=== PATIENT | female | born 2000 | race Caucasian/White ===

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

== ENCOUNTER 2020-12-07 07:38 | Day surgery (SDC) | payer BC, SELFPAY ==
[2020-10-14 15:46] VITALS: BMI 22.8
--- NOTE | 2020-12-06 23:45 | HP.PCM_ITS ---
History and Physical Date of Admission: 12/07/20 HISTORY OF PRESENT ILLNESS 20 year old woman presents with a crushing injury to her right ring finger tip back in January,. She was working as a main line assembler. She got her right ring finger crushed between two packages of frozen chicken. She developed an erythematous mass on the ulnar aspect of her right ring finger tip is friable. She sustained some bleeding later on that required going to the ED for hemostasis. She has some discomfort when her right ring finger tip is bumped. She states when she went to the ED, no x-ray was taken. She denies fever. She is back to work and has no difficulty with activities of daily living. She is right hand dominant. She presents at this time for further evaluation and treatment. 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 Pyogenic granuloma of skin UTI (urinary tract infection) PAST SURGICAL HISTORY None ALLERGIES No Known Allergies MEDICATIONS gabapentin 100 mg capsule 100 mg PO DAILY 10/14/20 [History Confirmed 10/14/20] zulema root 325 mg-pyridoxine HCl (vitamin B6) 25 mg capsule 1 cap PO DAILY cap 10/14/20 [History Confirmed 10/14/20] pediatric gkmiztqx-legt-imi 2 tab PO DAILY tab 10/14/20 [History Confirmed 10/14/20] FAMILY HISTORY Mother - Anemia, History of blood clots Grandmother - Anesthesia complication, History of blood clots, Hypertension Grandfather - Depression, Diabetes, Hypertension, CVA (cerebral vascular accident), Skin cancer Aunt - Anesthesia complication SOCIAL HISTORY Smoking Status: Never smoker alcohol intake: never substance use type: does not use REVIEW OF SYSTEMS General - Denies fever, fatigue, and weight loss. Eyes - Denies cataracts and glaucoma. ENT - Denies nasal congestion and sore throat. Endocrine - Denies excessive thirst and urination. Skin - Denies skin cancer. Has pyogenic granuloma ulnar aspect right ring finger tip. Musculoskeletal - Denies joint pain, joint stiffness, weakness of muscles and joints, back pain, and arthritis. Neuro - Denies headaches. Cardiovascular - Denies chest pain, fatigue, and shortness of breath with exertion. Psych - Denies anxiety and depression. Respiratory - Denies chronic cough and shortness of breath. Gastrointestinal - Denies nausea, vomiting, diarrhea, and constipation. Hematologic - Denies abnormal bruising and bleeding. Genitourinary - Denies hematuria and urinary frequency. PHYSICAL EXAMINATION General - Alert and Oriented. HEENT - PERRL. EOMI. Throat is clear. Neck - Supple and nontender. No cervical adenopathy. Lungs - Clear to auscultation. Heart - Regular rate and rhythm. Abdomen - Soft and nondistended. Extremities - FROM. No axillary adenopathy. Radial pulses are palpable. On the ulnar aspect right ring finger tip is a erythematous mass consistent with a pyogenic granuloma. Measures 3 mm. Raised in configuration. No sensory deficits. Tip is soft. No evidence of infection. Patient is right hand dominant. Neuro - CN II-XII grossly intact. Psych - Normal mood and affect. ASSESSMENT 1. 3 mm pyogenic granuloma ulnar aspect right ring finger tip. 2. Late effect crush injury right ring finger tip. 3. 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 PLAN Patient has a pyogenic granuloma that she sustained at work as a main line assembler. It was a crushing injury. The treatment for a pyogenic granuloma is excision. Generally I leave the wound open and proceed with postoperative wound care with Silver dressing changes. Sometimes the pyogenic granuloma tracks down to the bone. A bone biopsy would be done at that time. If bone is exposed than wound reconstruction would be with an advancement skin flap. Tissue that is removed would be sent to Pathology for analysis to rule out carcinoma and to Microbiology for culture. A positive culture would necessitate antibiotic therapy. Surgery can be done on an outpatient basis under local anesthesia as a digital metacarpal and IV sedation. Prior to surgery an x-ray of the right ring finger will need to be done to look for any bony abnormalities. Patient was informed of the risks and complications of the procedure including alternatives to surgery. These were discussed with the patient personally. P atient voices understanding and wishes to proceed. Some of the risks and complications were included in a form from the [place] [employer]. Some of the risks and complications that were discussed included but were not inclusive of failure to diagnose including symptom relief, pain, infection, numbness, stiffness, loss of digit, RSD (CRPS), need for further surgery, contracture, and wound healing problems. We discussed the current risks associated with COVID-19. While it is understood that there is a community spread of COVID-19, the risk of haresh COVID-[address] [facility] ([facility]) is very low; however, the risk cannot be completely mitigated because of the community spread of the disease. We discussed in detail the risk of exposure to and/or potential harm posed by the COVID-19 virus with having a surgery/procedure at this time versus the risk of delaying the surgery/procedure. It is not possible to know either the risk of delaying the surgery or procedure or chance of getting an infection with perfect accuracy, but a joint decision was made to proceed at this time with the scheduled surgery/procedure as indicated on the consent form. Patient was notified that we will need to comply with any screening or testing [facility] wishes to perform or that surgery may be delayed for any positive results. Discussed with the patient that I was tested for COVID-19 on 12/12/19 which was negative and on 12/26/19 which was negative and on 01/09/20 which was negative and on 01/23/20 which was negative and on 02/06/20 which was negative and on 02/27/20 which was negative and on 03/19/20 which was negative and on 04/23/20 which was negative and on 05/14/20 which was negative and on 06/02/20 which was negative. I received the COVID-19 vaccine (Moderna) on 06/10/20 and the second vaccine dose was received on 07/08/20. When I was hospitalized on 08/10/20 I was tested for COVID-19 which was negative. I was also tested for COVID-19 on 08/25/20 which was negative and on 09/21/20 which was negative.
--- NOTE | 2020-12-06 23:46 | PCM.HP.BLA ---
History and Physical THIS DOCUMENT WAS ENTERED IN ERROR.
[2020-12-07] VITALS (7 sets, daily range): BP systolic 101–134; BP diastolic 60–88; PULSE 91–106; RESP 16–18; TEMP 19.9–36.3; O2SAT 96–100; BMI 22.1
--- NOTE | 2020-12-07 | GRA_PTH ---
PATIENT: RANI CASTILLO LOC: [facility] [place] U#:[id number] AGE/SX: 20/F ROOM: RE12/07/[address]: Dr. Seven Hogue MD : [id number] BED: DIS: 12/07/2020 SPEC #: [id number] RECD: 12/07/20 11:33 STATUS: JASWINDER RERomain #: [id number] PERCY: 12/07/20 00:[address]: Seven Hogue DEPT: SURGICAL PATHOLOGY RECD BY: Lewis Crain ENTERED: 12/07/20 11:33 SP TYPE: ALDAIR VARELA DR: Dr. Leroy Medina MD Tissues: Finger, NOS Procedures: Surgery Specimen Level IV HEADER OPERATION: Excision pyogenic granuloma, ring finger PRE-OP DIAGNOSIS: 3 mm pyogenic granuloma ulnar aspect right ring fingertip TISSUE SUBMITTED: Pyogenic granuloma right ring finger MICROSCOPIC DIAGNOSIS Skin and soft tissue of right ring finger, biopsy: Hyperkeratosis, fibrosis and mature granulation. No evidence of malignancy. AM:larry 12/08/2020 MICROSCOPIC DESCRIPTION Slides are reviewed. GROSS DESCRIPTION Received in fixative is one container labeled with the patient's name and designated pyogenic granuloma right ring finger. The specimen consists of a piece of fernandez-white skin measuring 0.3 x 0.3 x 0.2 cm. The specimen is totally submitted in one cassette. / MIYA:larry 12/07/20 TC:5 CPT: 86878
[2020-12-07 08:06] LABS: Internal QC Validated? YES +Cl - CLEAR BKGD; Pregnancy, Urine Negative Negative
[2020-12-07] MEDS: Lactated Ringers 1,000 ML 100 ML IV (08:17)
[2020-12-07] MEDS: Cefazolin 2 GM in 0.9% Normal Saline 100 ML IV (08:58)
[2020-12-07] MEDS: Lidocaine 1% /Epi 1:100 (20ml) 20 ML Vial (09:15)
--- NOTE | 2020-12-07 09:46 | PCM.OPRPT ---
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 3 mm pyogenic granuloma ulnar aspect right ring finger tip. 2. Late effect crush injury right ring finger tip. 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 Post-Operative Diagnosis: 1. 3 mm pyogenic granuloma ulnar aspect right ring finger tip. 2. Late effect crush injury right ring finger tip. 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 4. Open wound ulnar aspect right ring finger tip. Surgery/Procedure Performed:: Surgical preparation ulnar aspect right ring finger tip with excision pyogenic granuloma (0.2 cm2). Description of Surgical Findings:: 20 year old woman presents with a crushing injury to her right ring finger tip back in January,. She was working as a repair supervisor. She got her right ring finger crushed between two packages of frozen chicken. She developed an erythematous mass on the ulnar aspect of her right ring finger tip is friable. She sustained some bleeding later on that required going to the ED for hemostasis. She has some discomfort when her right ring finger tip is bumped. She denies fever. She is back to work and has no difficulty with activities of daily living. She is right hand dominant. Patient was informed of the risks and complications of the procedure including alternatives to surgery. These were discussed with the patient personally. Patient voices understanding and wishes to proceed. Some of the risks and complications were included in a form from the [place] [employer]. Some of the risks and complications that were discussed included but were not inclusive of failure to diagnose including symptom relief, pain, infection, numbness, stiffness, loss of digit, RSD (CRPS), need for further surgery, contracture, and wound healing problems. Total tourniquet time - 7 minutes Size of defect ulnar aspect right ring finger tip - 0.5 x 0.4 cm. Surgeon: Seven Hogue stonework supervisor: None Type of Anesthesia: Local MAC (xylocaine with epinephrine digital metacarpal block and IV sedation.) Specimen's removed: Pyogenic granuloma ulnar aspect right ring finger tip to Pathology and Microbiology. Drains: None. Estimated Blood Loss (mL): 2. Description of Procedure: Patient was taken to OR in supine position and was given IV sedation. The right hand was prepped and draped in the usual fashion. SCD's were placed for DVT prophylaxis. Perioperative antibiotics were given intravenously. The right ring finger was infiltrated with xylocaine and epinephrine as a digital metacarpal block. After waiting 5 minutes for the anesthetic to take effect, a digital tourniquet was applied. Under loupe magnification, a [id number] incision was made around this pyogenic granuloma down into the subcutaneous tissue. No pus was seen. There was scar tissue present that was also excised. It did not extend to the bone. After the pyogenic granuloma was excised, a suture was placed at 12 oclock position for pathology orientation. It was then sent to Pathology for analysis to rule out carcinoma. A portion of the deeper tissue was sent to Microbiology for culture. A positive culture will necessitate antibiotic therapy. The digital tourniquet was released after 7 minutes. Hemostasis was obtained with gauze compression. A Silver dressing was used to pack the wound which was followed by 2x2 gauze and a 2 inch Khai wrap. Patient tolerated the procedure well and was sent to PACU in satisfactory condition. Patient will be sent home on antibiotics and pain medication. She will keep her right hand elevated during the initial postoperative period. Patient will followup on 12/09/20, for a wound check and for discussion of the pathology report and for discussion of the Microbiology report. A positive culture will necessitate antibiotic therapy. Grafts/Implants Used: None. Complications None. Admit VTE Documentation VTE Present on Admission: No VTE Mechan Device Prophylaxis: SCD's VTE Pharm Prophylaxis ordered?: No Addendum Addendum: Surgery Charges CPT - 35035 ICD-10 - L98.0, S61.204A, S67.10xS, Y92.512
--- NOTE | 2020-12-07 10:01 | PCM.DC ---
Discharge Instructions Diet Discharge Diet: No restrictions Activity Discharge Activity: Return to Normal Activity, May Shower (wear plastic bag over right hand when showering.) and - (elevate right hand.) May shower in (days): 1 (wear plastic bag over right hand when showering.) May resume sexual activity in: No Restrictions Weight Bearing Status: Weight bearing as tolerated Keep extremity elevated above heart level: Right Arm Dressing / Incision Call your doctor if your incision/area has: Sudden Increased Bleeding, Increased Pain/ Swelling, Foul Smelling Discharge and Swelling at the incision site Call your doctor if you observe: Fever of 101 or Higher, Shortness of breath, Chest pain and Calf discomfort Suture Line Care: - (daily Silver dressing changes after operative dressing is removed in the office.) Change Dressing in: 2 days (will change operative dressing in the office.) Cleanse incision/area with: - (wear plastic bag over right hand when showering.) Follow Up Care Please Follow Up With: Seven Hogue MD When: monday12/09/20. call [phone] for appt. Test Results: Test results from this visit will be discussed in further detail at your follow-up appointment, if applicable. Discharge Plan Admission Primary Reason for Your Visit: outpatient surgery Attending Provider: Seven Hogue Primary Care Provider: Leroy Medina Discharge Orders/Prescriptions Prescriptions: New doxycycline hyclate 100 mg capsule 100 mg PO BID 5 Days Qty: 10 RF: 0 oxycodone-acetaminophen [Percocet] 5-325 mg tablet 1 tab PO Q6H PRN (Reason: pain (scale score 7-10)) 4 Days Qty: 15 RF: 0 Continued zulema root-pyridoxine HCl(B6) 325-25 mg capsule 1 cap PO DAILY RF: 0 Multi-Vitamins with Iron Tablet,Chewable 2 tab PO DAILY RF: 0 acidophilus-pectin, citrus 100 million cell-10 mg Capsule 1 cap PO DAILY RF: 0 Latanya Calm Mind 1 tablet DAILY RF: 0 Referrals / Follow Up: Leroy Medina MD [Primary Care Provider] - Disposition Disposition (needs filled in before D/C Order can be placed): Home, Self Care
== END 2020-12-07 10:58 | disposition home or self-care (01) ==
LOC: SDC 07:38 → AC 07:46
PROVIDERS: Anesthesiology; PCP Family Medicine; Referring Provider Surgery; Visit Provider Surgery
PROC: (CPT 26115; principal; 2020-12-07 08:50)
DX: L98.0 Pyogenic granuloma (principal); S67.19 Crushing injury of other finger(s); W23.0XXS Caught, crushed, jammed, or pinched between moving objects, sequela; F32.9 Major depressive disorder, single episode, unspecified; F41.9 Anxiety disorder, unspecified
CPT/HCPCS: 00400; 26115; 81025; 87070; 87075; 87102; 87205; 87206; 88304; 88305; J7120; J2405